=== PATIENT | male | born 2000 | race Two or more races ===

== ENCOUNTER 2025-08-15 12:59 | Emergency (ER) | payer OTHER ==
[~2025-08-15] VITALS: Ht 180.3 cm; Wt 59.9 kg
[2025-08-15 13:40] VITALS: BP 118/75; O2SAT 97
[2025-08-15] MEDS ORDERED: IPRATROPIUM/ALBUTEROL SULFATE 3 ML AMPUL.NEB IH SCH (15:00)
[2025-08-15] MEDS ORDERED: GUAIFENESIN/DEXTROMETHORPHAN 100MG/10ML BLIST.PACK PO ONE ×2 (15:00→15:03)
[2025-08-15] MEDS ORDERED: METHYLPREDNISOLONE SOD SUCC 125 MG VIAL IV ONE (15:00)
[2025-08-15] MEDS ORDERED: METHYLPREDNISOLONE SOD SUCC 125 MG VIAL ONE (15:03)
[2025-08-15 15:25] LABS: BASO % 0.2 % (0.1-1.2); EOS # 0.01 (0.04-0.54); EOS % 0.2 % (0.7-7.0); LYMPH # 1.93 (1.18-3.74); LYMPH % 41.4 % (19.3-53.1); MEAN PLATELET VOLUME 10.40 fl (9.4-12.4); MONO # 0.54 (0.24-0.82); MONO % 11.6 % (4.7-12.5); NEUT # 2.17 (1.56-6.13); NEUT % 46.6 % (34.0-71.1); RED CELL DISTRIBUTION WIDTH 11.4 % (11.6-14.4)
[2025-08-15 16:00] LABS: COVID-19 AG NEGATIVE (NEGATIVE)
[2025-08-15 16:15] LABS: ALT/SGPT 103.0 U/L (12-78); AST/SGOT 52.0 U/L (15-37); BILIRUBIN TOTAL 0.55 mg/dL (0.3-1.2); BUN CREA RATIO 14.0 (7.0-25.0); CREATININE SERUM 0.81 mg/dL (0.70-1.30); GFR 116.11; GLOBULINA 3.9 G/DL (2.4-3.5); GLUCOSE FASTING 93.0 mg/dL (65-100); OSMOLALITY SERUM 282.0 MOSM/KG (275-295)
[2025-08-15] MEDS ORDERED: IPRATROPIUM/ALBUTEROL SULFATE 3 ML AMPUL.NEB IH ONE (18:02)
[2025-08-15] MEDS ORDERED: ALBUTEROL1.25 MG/3 IH (18:58)
[2025-08-15] MEDS ORDERED: IPRATROPIU0.2 MG/1 M IH (18:58)
[2025-08-15] MEDS ORDERED: MEDROLPACK PO (18:59)
[2025-08-15] MEDS ORDERED: ZITHROMAX500 MG PO (18:59)
[2025-08-15] MEDS ORDERED: TUSSIN DM LIQU118 ML PO (18:59)
== END 2025-08-15 20:12 | disposition home or self-care (01) ==
LOC: ER 12:59 → EMR PED 12:59 → ER 13:19
PROVIDERS: General Practice
DX: J00 Acute nasopharyngitis [common cold] (principal); J45.909 Unspecified asthma, uncomplicated; Z20.822 Contact with and (suspected) exposure to COVID-19